=== PATIENT | male | born 1960 | race Caucasian/White ===

== ENCOUNTER 2016-10-31 07:29 | Observation (INO) | payer BC ==
[2016-10-31] VITALS (7 sets, daily range): BP systolic 125–142; BP diastolic 72–86; PULSE 54–74; RESP 12–20; TEMP 97.3–97.5; O2SAT 95–100
[~2016-10-31] VITALS: Ht 188 cm; Wt 125.0 kg
[2016-10-31] MEDS ORDERED: MORPHINE SULFATE 4 MG/ML INJ IV PUSH ONE (07:45)
[2016-10-31] MEDS ORDERED: SODIUM CHLORIDE 0.9% FLUSH 5 ML FLUSH IVF PRN ×3 (07:45→10:45)
[2016-10-31] MEDS ORDERED: ASPIRIN 81 MG CHEW TAB PO ONE (07:45)
--- NOTE | 2016-10-31 07:48 | PD ---
HPI Chief Complaint: Chest Pain Time Seen by Provider: 07:36 Travel History International Travel<30 days: No Contact w/Intl Traveler<30days: No Traveled to known affect area: No History of Present Illness HPI This is a 56-year-old male who presents to the emergency department with a history of a cardiac stent and a thoracic aortic aneurysm who presents to the emergency department with 4 days of discomfort in his left neck with one night of chest discomfort described as some heaviness, dull, constant, moderate severity having kept him up from sleeping overnight. The patient most recently had a stress test in February of last year which was reassuring. He did come off Plavix 3 weeks ago given that has been over a year since the stent was put in. He had imaging of his thoracic aneurysm in July of last year and they're monitoring it every 6 months. FOR[facility]LY [facility] Past Medical History Narrative Medical History of myocardial infarction with stent Known thoracic aortic aneurysm being monitored with CT imaging Social History Alcohol Use: Yes Tobacco Use: No Allergies-Medications (Allergen,Severity, Reaction): Coded Allergies: No Known Allergies (Unverified , 10/31/16) Reported Meds & Prescriptions Reported Meds & Active Scripts Active Reported Omeprazole 20 Mg Tab 20 Mg PO DAILY Coq-10 (Coenzyme Q10 (Ubidecarenone)) 150 Mg Cap 200 Mg PO DAILY [Fish Oil] 1,200 Mg PO NELSON Losartan (Losartan Potassium) 25 Mg Tab 25 Mg PO HS Lipitor (Atorvastatin Calcium) 80 Mg Tab 80 Mg PO HS Metoprolol Tartrate 50 Mg Tab 50 Mg PO DAILY Aspirin 81 Mg Tabdr 81 Mg PO DAILY Review of Systems Except as stated in HPI: all other systems reviewed are Neg Physical Exam Narrative GENERAL:Well appearing, no acute distress SKIN: Warm and dry. HEAD: Atraumatic. Normocephalic. EYES: Pupils equal and round. No injection or drainage. ENT: Moist mucous membranes NECK: Trachea midline. CARDIOVASCULAR: Regular rate and rhythm. No murmur appreciated. RESPIRATORY: Clear to auscultation. Breath sounds equal bilaterally. GASTROINTESTINAL: Abdomen soft, non-tender, nondistended. MUSCULOSKELETAL: No obvious deformities. NEUROLOGICAL: Awake and alert. No obvious cranial nerve deficits. Moving all extremities. PSYCHIATRIC: Appropriate mood and affect; insight and judgment normal. Data Data Last Documented VS Vital Signs Date Time Temp Pulse Resp B/P Pulse Ox O2 Delivery O2 Flow Rate FiO2 10/31/16 08:28 54 17 125/76 95 Room Air 10/31/16 07:30 97.5 Orders Electrocardiogram (10/31/16 07:43) Complete Blood Count With Diff (10/31/16 07:43) Comprehensive Metabolic Panel (10/31/16 07:43) Prothrombin Time / Inr (Pt) (10/31/16 07:43) Act Partial Throm Time (Ptt) (10/31/16 07:43) Troponin I (10/31/16 07:43) Chest, Single Ap (10/31/16 07:43) Ecg Monitoring (10/31/16 07:43) Bilateral Bp Monitoring (10/31/16 07:43) Iv Access Insert/Monitor (10/31/16 07:43) Oximetry (10/31/16 07:43) Oxygen Administration (10/31/16 07:43) Aspirin Chew (Aspirin Chew) (10/31/16 07:45) Sodium Chloride 0.9% Flush (Ns Flush) (10/31/16 07:45) Morphine Inj (Morphine Inj) (10/31/16 07:45) Cta Chest W Iv Contrast W 3d (10/31/16 08:37) Iohexol 350 Inj (Omnipaque 350 Inj) (10/31/16 09:03) Labs Laboratory Tests Test 10/31/16 07:50 White Blood Count 6.1 TH/MM3 Red Blood Count 4.92 MIL/MM3 Hemoglobin 15.1 GM/DL Hematocrit 44.5 % Mean Corpuscular Volume 90.3 FL Mean Corpuscular Hemoglobin 30.7 PG Mean Corpuscular Hemoglobin 33.9 % Concent Red Cell Distribution Width 13.3 % Platelet Count 165 TH/MM3 Mean Platelet Volume 6.7 FL Neutrophils (%) (Auto) 66.6 % Lymphocytes (%) (Auto) 21.0 % Monocytes (%) (Auto) 8.2 % Eosinophils (%) (Auto) 3.5 % Basophils (%) (Auto) 0.7 % Neutrophils # (Auto) 4.1 TH/MM3 Lymphocytes # (Auto) 1.3 TH/MM3 Monocytes # (Auto) 0.5 TH/MM3 Eosinophils # (Auto) 0.2 TH/MM3 Basophils # (Auto) 0.0 TH/MM3 CBC Comment DIFF FINAL Differential Comment Prothrombin Time 11.1 SEC Prothromb Time International 1.0 RATIO Ratio Activated Partial 27.1 SEC Thromboplast Time Sodium Level 141 MEQ/L Potassium Level 4.2 MEQ/L Chloride Level 105 MEQ/L Carbon Dioxide Level 31.4 MEQ/L Anion Gap 5 MEQ/L Blood Urea Nitrogen 15 MG/DL Creatinine 1.01 MG/DL Estimat Glomerular Filtration 76 ML/MIN Rate Random Glucose 97 MG/DL Calcium Level 8.5 MG/DL Total Bilirubin 0.7 MG/DL Aspartate Amino Transf 26 U/L (AST/SGOT) Alanine Aminotransferase 55 U/L (ALT/SGPT) Alkaline Phosphatase 69 U/L Troponin I LESS THAN 0.02 NG/ML Total Protein 7.2 GM/DL Albumin 3.8 GM/DL [facility] Medical Decision Making Medical Screen Exam Complete: Yes Emergency Medical Condition: Yes Interpretation(s) EKG: Sinus bradycardia with T-wave inversions in leads 3 and aVF No leukocytosis Electrolytes are reassuring Troponin is normal Chest x-ray: No acute process Differential Diagnosis Acute coronary syndrome, GERD, costochondritis, thoracic aortic aneurysm, aortic dissection Narrative Course This is a 56-year-old male who presents to the emergency department with atypical chest discomfort that radiates up the left neck. The patient has a history of coronary artery disease with a stent as well as a known thoracic aortic aneurysm. He was placed on a monitor and an IV was established. EKG demonstrated some nonspecific changes. Labs are reassuring with a normal troponin. CTA was obtained to evaluate for thoracic aorta which is reassuring and shows no reason for the patient's pain. Patient will be placed in the chest pain center for serial cardiac enzymes and cardiology evaluation. Diagnosis Primary Impression: Chest pain Qualified Code: R07.9 - Chest pain, unspecified type Admitting Information Admitting Physician Requests: Radha Natarajan MD Oct 31, 2016 07:48
[2016-10-31] MEDS ORDERED: METO50TA PO (07:49)
[2016-10-31] MEDS ORDERED: COQ-150C PO (07:49)
[2016-10-31] MEDS ORDERED: OMEP20TA PO (07:49)
[2016-10-31] MEDS ORDERED: ASPI1TAB69 PO (07:49)
[2016-10-31] MEDS ORDERED: LOSA25TA PO (07:49)
[2016-10-31] MEDS ORDERED: LIPI80TA PO (07:49)
[2016-10-31] MEDS ORDERED: FISHOIL PO (07:49)
[2016-10-31 08:14] LABS: AUTOMATED NEUTROPHIL # 4.1 TH/MM3 (1.8-7.7); BASOPHIL % 0.7 % (0.0-2.0); EOSINOPHIL # 0.2 TH/MM3 (0-0.4); EOSINOPHIL % 3.5 % (0.0-4.0); HEMATOCRIT 44.5 % (39.0-51.0); HEMO FLAGS DIFF FINAL; LYMPHOCYTE # 1.3 TH/MM3 (1.0-4.8); MEAN CELL VOLUME 90.3 FL (80.0-100.0); MEAN CORPUSCULAR HEMOGLOBIN 30.7 PG (27.0-34.0); MEAN CORPUSCULAR HGB CONC 33.9 % (32.0-36.0); MONO % 8.2 % (0.0-8.0); NEUT % 66.6 % (16.0-70.0); PLATELET COUNT 165 TH/MM3 (150-450); RED BLOOD COUNT 4.92 MIL/MM3 (4.50-5.90); RED CELL DISTRIBUTION WIDTH 13.3 % (11.6-17.2); WHITE BLOOD COUNT 6.1 TH/MM3 (4.0-11.0)
--- NOTE | 2016-10-31 08:19 | RADRPT ---
EXAM DATE/TIME: 10/31/2016 07:56 [facility] COMPARISON: No previous studies available for comparison. INDICATIONS : Left side chest pains with tightness and pressure.Prior cardiac stents. MEDICAL HISTORY : Myocardial infarction. SURGICAL HISTORY : Coronary artery stent. ENCOUNTER: Initial ACUITY: 1 day PAIN SCORE: 7/10 LOCATION: Left chest FINDINGS: 2 portable frontal views of the chest show no infiltrate or effusion. Heart is normal in size. No pne umothorax. Bony structures are unremarkable. CONCLUSION: Normal examination. Konstantin De León Jr., MD on October 31, 2016 at 8:17 Board Certified Radiologist. This report was verified electronically.
[2016-10-31 08:25] LABS: APTT (PATIENT) 27.1 SEC (24.3-30.1); PROTHROMBIN TIME - PATIENT 11.1 SEC (9.8-11.6)
[2016-10-31 08:29] LABS: ANION GAP 5 MEQ/L (5-15); AST (GOT) 26 U/L (15-37); BICARBONATE 31.4 MEQ/L (21.0-32.0); BLOOD UREA NITROGEN 15 MG/DL (7-18); CHLORIDE 105 MEQ/L (98-107); GLOMERULAR FILTRATION RATE 76 ML/MIN (>89); POTASSIUM 4.2 MEQ/L (3.5-5.1); SODIUM (NA) 141 MEQ/L (136-145)
[2016-10-31 08:34] LABS: ALKALINE PHOSPHATASE 69 U/L (45-117); ALT (GPT) 55 U/L (12-78); TOTAL BILIRUBIN ADULT 0.7 MG/DL (0.2-1.0)
[2016-10-31] MEDS ORDERED: IOHEXOL 350 MG/ML 10 ML VIAL (for RAD DIAG) IV ONE (09:03)
--- NOTE | 2016-10-31 09:43 | RADRPT ---
EXAM DATE/TIME: 10/31/2016 09:01 [facility] COMPARISON: No previous studies available for comparison. INDICATIONS: Chest pain with jaw pressure. IV CONTRAST: 95 cc Omnipaque 350 (iohexol) IV RADIATION DOSE: 23.54 CTDIvol (mGy) MEDICAL HISTORY: Hypertension. Hernia, inguinal. SURGICAL HISTORY: Tonsillectomy. Cardiac stent. ENCOUNTER: Initial ACUITY: 3 days PAIN SCALE: 5/10 LOCATION: Chest TECHNIQUE: Volumetric scanning of the chest was performed using a pulmonary embolism protocol MIP images were re constructed. Using automated exposure control and adjustment of the mA and/or kV according to patien t size, radiation dose was kept as low as reasonably achievable to obtain optimal diagnostic quality images. FINDINGS: There is mild aneurysmal dilatation of the ascending aorta measuring 4.3 cm. No dissection is seen. No pericardial effusion is seen. The patient does have high density material within the proximal LAD li kim related to a stent. The aortic arch and descending thoracic aorta are normal. The lungs are grossly clear. Visualized structures in the upper abdomen are unremarkable. CONCLUSION: 1. Mild aneurysmal dilatation of the ascending aorta measuring 4.3 cm. 2. Coronary artery stent in the LAD. 3. There is no evidence of dissection. Nick Marie MD on October 31, 2016 at 9:28 Board Certified Radiologist. This report was verified electronically.
[2016-10-31] MEDS ORDERED: SODIUM CHLORIDE 0.9% FLUSH 5 ML FLUSH IVF SCH ×2 (09:45→21:00)
[2016-10-31] MEDS ORDERED: ACETAMINOPHEN 500 MG CPLT PO PRN (10:45)
[2016-10-31] MEDS ORDERED: ALPRAZolam 0.25 MG TAB PO PRN (10:45)
[2016-10-31] MEDS ORDERED: ACETAMINOPHEN/HYDROcodone 325 MG/7.5 MG TAB PO PRN (10:45)
[2016-10-31] MEDS ORDERED: ONDANSETRON HCL 4 MG/2 ML VIAL IV PRN (10:45)
--- NOTE | 2016-10-31 10:59 | HHI.HP ---
HPI Primary Care Physician Non-Staff Chief Complaint Chest pain History of Present Illness This is a 56-year-old male that presents to ED via private vehicle with his with history of CAD. He is from [place]. October 08, 2015 he had a stent placed to his LAD while in [place] and to having a non-STEMI. He has been compliant with his medications and just finished taking his Plavix 3 weeks ago after being on it for about a year. Patient states that he developed a left -sided jaw pain that he describes as dull. Began 4 days ago and has been constant however the intensity increases and decreases. He saw nothing to bring on the discomfort nothing to worsen or improve the discomfort. Then last night around 2:30 the morning is awoken with a tightness in the center of his chest that has been constantly there but waxing and waning. He's found nothing to worsen it. He has had some shortness of breath but denies nausea or diaphoresis. He states that when he had his PA in 2016 that he had symptoms of jaw discomfort, tightness in his chest, and arm pain which he states he had with this episode is not as intense. During his PA also has some discomfort radiating into his arm but this episode the discomfort when a sparse to his axillary region. Denies recent illnesses. Denies fevers or chills. He did not try nitroglycerin at home. Patient states that he is also had some chronic right lower extremity edema. He states that when he elevates the extremity the edema goes away. This was evaluated in [place] over the summer with an ultrasound which was negative for DVT. Review of Systems General: Patient denies fevers, chills recent, and recent travel HEENT: Patient denies headache, sore throat, difficulty swallowing. Left-sided jaw pain. Cardiovascular: Has the chest discomfort as mentioned above. Denies sensation of heart beating rapidly or irregularly. No syncope. Denies diaphoresis. Respiratory: He was little short of breath. Denies inspirational chest discomfort. Denies coughing wheezing or hemoptysis. GI: Patient denies nausea, vomiting, diarrhea, abdominal pain, bloody stools. Musculoskeletal: Patient denies joint pain or edema. Denies calf pain or edema. Neurovascular: Patient denies numbness, tingling, weakness in extremities. Denies headache. Endocrine: Denies polyuria and polydipsia. Hematologic: Denies easy bruising. Skin: Denies rash or itching. Past Family Social History Allergies: Coded Allergies: No Known Allergies (Unverified , 10/31/16) Past Medical History History of CAD. He was a non-STEMI September 2015 while in [place]. He had a stent to the LAD. Was a 4 x 20 mm Promus premier stent. He was on Plavix for over a year. History of aortic aneurysm that is followed in [place]. He states that his last CT showed that the size of aneurysm has been decreasing and was 5.[address] scan last night in this hospital measured 4.3 cm. Also has history of hypertension, hyperlipidemia, and GERD. Denies diabetes. Past Surgical History Cardiac catheterization October 08, 2015 with stenting of the LAD. Tonsillectomy and right inguinal hernia repair. Reported Medications Reported Meds & Active Scripts Active Reported Omeprazole 20 Mg Tab 20 Mg PO DAILY Coq-10 (Coenzyme Q10 (Ubidecarenone)) 150 Mg Cap 200 Mg PO DAILY [Fish Oil] 1,200 Mg PO NELSON Losartan (Losartan Potassium) 25 Mg Tab 25 Mg PO HS Lipitor (Atorvastatin Calcium) 80 Mg Tab 80 Mg PO HS Metoprolol Tartrate 50 Mg Tab 50 Mg PO DAILY Aspirin 81 Mg Tabdr 81 Mg PO DAILY Active Ordered Medications Current Medications Medications (Trade) Dose Ordered Sig/Vignesh Route Start Time Stop Time Status Last Admin (NS Flush) 2 ml UNSCH PRN IVF 10/31/16 10:45 (NS Flush) 2 ml BID IVF 10/31/16 21:00 (Tylenol) 500 mg Q4H PRN PO 10/31/16 10:45 ([place] 7.5-325 Mg) 1 tab Q4H PRN PO 10/31/16 10:45 (Zofran Inj) 4 mg Q6H PRN IV 10/31/16 10:45 (Protonix) 40 mg DAILY PO 10/31/16 11:00 (Aspirin) 325 mg DAILY PO 11/01/16 09:00 (Xanax) 0.25 mg Q8H PRN PO 10/31/16 10:45 (Lipitor) 80 mg HS PO 10/31/16 21:00 (Cozaar) 25 mg HS PO 10/31/16 21:00 (Lopressor) 50 mg DAILY PO 11/01/16 09:00 Family History His father had an PA. Social History Patient is a lifetime nonsmoker. Denies illicit drugs. He may have 1-2 out of beverages a week. 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 He is . Physical Exam Vital Signs Vital Signs Date Time Temp Pulse Resp B/P Pulse Ox O2 Delivery O2 Flow Rate FiO2 10/31/16 10:11 61 13 126/76 100 Room Air 10/31/16 08:28 54 17 125/76 95 Room Air 10/31/16 07:39 65 12 139/80 97 10/31/16 07:30 97.5 60 20 142/72 99 Room Air Physical Exam GENERAL: This is a well-nourished, well-developed patient, in no apparent distress. Patient speaks in clear complete sentences. Patient is pleasant. HEENT: Head is atraumatic and normocephalic. Neck is supple without lymphadenopathy and trachea is midline. No JVD or carotid bruits. CARDIOVASCULAR: Regular rate and rhythm without murmurs, gallops, or rubs. RESPIRATORY: Clear to auscultation. Breath sounds equal bilaterally. No wheezes , rales, or rhonchi. Chest wall is nontender. No use of accessory muscles. GASTROINTESTINAL: Abdomen is nontender, nondistended. Abdomen soft. No obvious pulsatile mass or bruit. No CVA tenderness. Strong femoral pulses bilaterally. Normal bowel sounds in all quadrants. MUSCULOSKELETAL: Patient is moving upper and lower extremities freely. Bilateral lower extremity edema more so on the right than the left. Patient states that this has been chronic and evaluated with an ultrasound of the right leg that did not show a DVT. No calf tenderness and no Homans sign. Strong pulses in upper and lower extremities. NEUROLOGICAL: Patient is alert and oriented. Cranial nerves 2-12 are grossly intact. No focal deficits and speech is clear. SKIN: No rash and turgor is normal. Laboratory Laboratory Tests Test 10/31/16 07:50 White Blood Count 6.1 Red Blood Count 4.92 Hemoglobin 15.1 Hematocrit 44.5 Mean Corpuscular Volume 90.3 Mean Corpuscular Hemoglobin 30.7 Mean Corpuscular Hemoglobin 33.9 Concent Red Cell Distribution Width 13.3 Platelet Count 165 Mean Platelet Volume 6.7 Neutrophils (%) (Auto) 66.6 Lymphocytes (%) (Auto) 21.0 Monocytes (%) (Auto) 8.2 Eosinophils (%) (Auto) 3.5 Basophils (%) (Auto) 0.7 Neutrophils # (Auto) 4.1 Lymphocytes # (Auto) 1.3 Monocytes # (Auto) 0.5 Eosinophils # (Auto) 0.2 Basophils # (Auto) 0.0 CBC Comment DIFF FINAL Differential Comment Prothrombin Time 11.1 Prothromb Time International 1.0 Ratio Activated Partial 27.1 Thromboplast Time Sodium Level 141 Potassium Level 4.2 Chloride Level 105 Carbon Dioxide Level 31.4 Anion Gap 5 Blood Urea Nitrogen 15 Creatinine 1.01 Estimat Glomerular Filtration 76 Rate Random Glucose 97 Calcium Level 8.5 Total Bilirubin 0.7 Aspartate Amino Transf 26 (AST/SGOT) Alanine Aminotransferase 55 (ALT/SGPT) Alkaline Phosphatase 69 Troponin I LESS THAN 0.02 Total Protein 7.2 Albumin 3.8 Result Diagram: 10/31/16 0750 10/31/16 0750 Imaging Chest x-ray reveals nothing acute. CTA of the aorta has been read by the radiologist as #1 mild aneurysmal dilatation of the ascending aorta measuring 4.3 cm. #2 coronary artery stent in the LAD. #3 there is no evidence of dissection. Last 48 hours Impressions Chest X-Ray 10/31/16 0743 Signed Impressions: Service Date/Time: Monday, October 31, 2016 07:56 - CONCLUSION: Normal examination. Konstantin De León Jr., MD Course Initial EKG is sinus rhythm without significant ST segment depressions or elevations. There are nonspecific inferior T-wave changes. Assessment and Plan Assessment and Plan * Chest pain: Patient will continue to have serial cardiac enzymes and EKGs for ruling out purposes. Patient is concerned as he states that many of the symptoms are similar to when he needs a stent but do not seem to be as intense. Patient will be evaluated by Dr. Beltran of cardiology and the chest pain center and that time he will make a plan of further cardiac evaluation. * CAD: This is going to be evaluated this visit. We will keep him on his medications. * Hypertension: Continue current medication. * Hyperlipidemia: Continue current medication. * Aortic aneurysm: We will give the patient a copy of his CT as well as a copy of his images. He can share this information with his physician following his aneurysm in [place]. * GERD: Will use Protonix. Patient is stable at this time. He is agreeable to this plan. Jc Latif Oct 31, 2016 10:59
[2016-10-31] MEDS ORDERED: PANTOPRAZOLE SOD 40 MG DELAYED RELEASE TAB PO SCH (11:00)
[2016-10-31 11:48] LABS: CREATINE KINASE 87 U/L (39-308)
[2016-10-31] MEDS ORDERED: KETOROLAC TROMETHAMINE 30 MG/ML (IVP) VIAL IVP ONE (13:30)
[2016-10-31] MEDS ORDERED: REGADENOSON INJ 0.4 MG/5 ML SYR ONE (14:34)
--- NOTE | 2016-10-31 15:00 | EKG ---
Date Performed: 10/31/2016 Time Performed: 07:37:17 PTAGE: 56 years EKG: SINUS BRADYCARDIA BORDERLINE LEFT AXIS DEVIATION (QRS AXIS < -20) MODERATE INTRAVENTRICULAR CONDUCTION DELAY (110* ms QRS DURATION. BORDERLINE ECG NO PREVIOUS TRACING DOCTOR: Thea Roberts Interpretating Date/Time 10/31/2016 14:58:47
--- NOTE | 2016-10-31 15:08 | EKG ---
Date Performed: 10/31/2016 Time Performed: 07:44:20 PTAGE: 56 years EKG: SINUS BRADYCARDIA BORDERLINE LEFT AXIS DEVIATION[QRS AXIS <-20] MODERATE INTRAVENTRICULAR C ONDUCTION DELAY [110*ms QRS DURATION]. MINIMAL VOLTAGE CRITERIA FOR LVH, CONSIDER NORMAL VARIANT [ALEC TS CRITERIA IN ONE OF: R(aVL), S(), R(V5/V6)*S(V1)] PREVIOUS TRACING 10/31/2016@ 07.37.17 DOCTOR: Thea Roberts Interpretating Date/Time 10/31/2016 15:07:14
[2016-10-31 15:19] LABS: CREATINE KINASE 87 U/L (39-308)
--- NOTE | 2016-10-31 15:51 | RADRPT ---
EXAM DATE/TIME: 10/31/2016 14:08 [facility] COMPARISON: No previous studies available for comparison. INDICATIONS : Midsternal chest pain for 3 days. Angina. Coronary artery disease. DOSE: 35 mCi Tc99m Myoview at stress. 11 mCi Tc99m Myoview at rest. 0.4 mg Lexiscan STRESS SYMPTOMS: Flushed and dyspnea. EJECTION FRACTION: 59% MEDICAL HISTORY : Hypertension. Myocardial infarction. SURGICAL HISTORY : Inguinal hernia repair. Thoracic aortic aneurysm. ENCOUNTER: Initial ACUITY: 3 days PAIN SCALE: 3/10 LOCATION: Retrosternal chest TECHNIQUE: The patient underwent pharmacologic stress with infusion of prescribed dose. Continuous ECG tracing was monitored during stress. Gated SPECT imaging was performed after stress and conventional SPECT i maging was performed at rest. The examination was performed on a SPECT/CT scanner, both attenuation and non-corrected datasets were reviewed. FINDINGS: DISTRIBUTION: The maximum perfused segment at stress is in the anterior wall. PERFUSION STUDY: The pattern of perfusion at stress is within normal limits. GATED STUDY: There is intact wall motion and thickening without hypokinetic or dyskinetic segments. CONCLUSION: No areas of ischemia are seen. RISK CATEGORY: Low (<1% Annual Mortality Rate) Nick Marie MD on October 31, 2016 at 15:44 Board Certified Radiologist. This report was verified electronically.
--- NOTE | 2016-10-31 15:59 | HHI.DCPOC ---
Discharge Care Plan Diagnosis: (1) Chest pain (2) CAD (coronary artery disease) (3) H/O heart artery stent (4) Hypertension (5) Hyperlipidemia (6) Aortic aneurysm (7) GERD (gastroesophageal reflux disease) Goals to Promote Your Health * To prevent worsening of your condition and complications * To maintain your health at the optimal level Directions to Meet Your Goals Take your medications as prescribed Follow your dietary instruction Follow activity as directed Keep your appointments as scheduled Take your immunizations and boosters as scheduled If your symptoms worsen call your PCP, if no PCP go to Urgent Care Center or Emergency Room Smoking is Dangerous to Your Health. Avoid second hand smoke Call the 24-hour hour crisis hotline for domestic abuse at Jc Latif Oct 31, 2016 15:59
--- NOTE | 2016-10-31 17:58 | EKG ---
Date Performed: 10/31/2016 Time Performed: 14:01:59 PTAGE: 56 years EKG: SINUS BRADYCARDIA BORDERLINE LEFT AXIS DEVIATION MODERATE INTRAVENTRICULAR CONDUCTION DELAY BORDERLINE ECG Prior electrocardiogram not available for comparison PREVIOUS TRACING : 10/31/2016 07.44 DOCTOR: Emmanuel Mariano Interpretating Date/Time 10/31/2016 17:57:28
[2016-10-31] MEDS ORDERED: LOSARTAN 25 MG TAB PO SCH (21:00)
[2016-10-31] MEDS ORDERED: ATORVASTATIN 80 MG TAB PO SCH (21:00)
[2016-11-01] MEDS ORDERED: ASPIRIN 325 MG TAB PO SCH (09:00)
[2016-11-01] MEDS ORDERED: METOPROLOL TARTRATE 50 MG TAB PO SCH (09:00)
--- NOTE | 2016-11-01 14:04 | TR ---
Date Performed: 10/31/2016 Time Performed: 14:40:32 DOCTOR: Daniel Beltran DRUG LIST: CLINICAL HISTORY: CHEST PAIN REASON FOR TEST: CHEST PAIN REASON FOR ENDING: OBSERVATION: CONCLUSION: Lexiscan stress test was performed under standard four minute protocol. [place]ion[place] e was injected one minute prior to ending the test. No electrocardiographic abormalities were present to suggest ischemia. Nuclear imaging and interpretation are pending. COMMENTS:
== END 2016-10-31 18:05 | disposition home or self-care (01) ==
LOC: NEPC 07:29 → NEDA 09:32 → NEPGCP 12:02
DX: R07.9 Chest pain, unspecified (principal); I25.10 Atherosclerotic heart disease of native coronary artery without angina pectoris; I10 Essential (primary) hypertension; E78.5 Hyperlipidemia, unspecified; I71.9 Aortic aneurysm of unspecified site, without rupture; K21.9 Gastro-esophageal reflux disease without esophagitis; I25.2 Old myocardial infarction; Z79.82 Long term (current) use of aspirin; Z95.5 Presence of coronary angioplasty implant and graft
CPT/HCPCS: 71010; 71275; 78452; 80053; 82550; 84484; 85025; 85610; 85730; 93005; 93017; 96374; 99285; A9502; G0378; J1885; J2270; J2785; Q9967

== ENCOUNTER 2016-11-02 09:29 | Emergency (ER) | payer BC ==
[~2016-11-02] VITALS: Ht 188 cm; Wt 125.0 kg
[~2016-11-02 09:29] MED LIST: ASPI1TAB69 PO; COQ-150C PO; FISHOIL PO; LIPI80TA PO; LOSA25TA PO; METO50TA PO; OMEP20TA PO
[2016-11-02 09:33] VITALS: BP 161/85; PULSE 65; RESP 18; TEMP 98.3; O2SAT 98
--- NOTE | 2016-11-02 09:43 | PD ---
HPI . possible shingles Chief Complaint: Skin Problem Time Seen by Provider: 09:36 Travel History International Travel<30 days: No Contact w/Intl Traveler<30days: No Traveled to known affect area: No History of Present Illness HPI 56-year-old male visiting from [place] here with complaints of possible shingles. Patient noticed a painful rash that started in his chin yesterday. 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 Patient has started the acyclovir but did not take the Medrol Dosepak. Today he is complaining of pain and would like something for the associated pain. He denies any other rashes, lesions or pain sensation elsewhere. He was previously seen in the emergency department for chest pain and discharged home. 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) Abdominal Surgery: Yes (HERNIA ) Body Medical Devices: stent Cardiac Surgery: Yes (stent placement ) Coronary Stent: Yes Ear Surgery: No Endocrine Surgery: No Eye Surgery: No Genitourinary Surgery: No Gynecologic Surgery: No Oral Surgery: No Thoracic Surgery: No Tonsillectomy: Yes Social History Alcohol Use: Yes Tobacco Use: No Allergies-Medications (Allergen,Severity, Reaction): Coded Allergies: No Known Allergies (Unverified , 11/02/16) Reported Meds & Prescriptions Reported Meds & Active Scripts Active Ibuprofen 800 Mg Tab 800 Mg PO TID Reported Omeprazole 20 Mg Tab 20 Mg PO DAILY Coq-10 (Coenzyme Q10 (Ubidecarenone)) 150 Mg Cap 200 Mg PO DAILY Losartan (Losartan Potassium) 25 Mg Tab 25 Mg PO HS Lipitor (Atorvastatin Calcium) 80 Mg Tab 80 Mg PO HS Metoprolol Tartrate 50 Mg Tab 50 Mg PO DAILY Aspirin 81 Mg Tabdr 81 Mg PO DAILY Acyclovir 800 mg five times a day Medrol dose pack, take as directed Review of Systems General / Constitutional: No: Fever Eyes: No: Visual changes HENT: Positive: Other (facial pain), No: Headaches Cardiovascular: No: Chest Pain or Discomfort Respiratory: No: Shortness of Breath Gastrointestinal: No: Abdominal Pain Genitourinary: No: Dysuria Musculoskeletal: No: Pain Skin: Positive Other (blisters on left side of chin and left temporal region), No Rash Neurologic: No: Weakness Psychiatric: No: Depression Endocrine: No: Polydipsia Hematologic/Lymphatic: No: Easy Bruising Physical Exam Narrative GENERAL: AAO x 3, no acute distress, Well-nourished, well-developed patient. SKIN: Warm and dry. No visible bruising. There are herpetic-like lesions located in the left side of the chin as well as the left temporal region. consistent with shingles V3 distribution HEAD: Normocephalic and atraumatic. EYES: No scleral icterus. No injection or drainage. EOM intact, PERRLA. No evidence of ocular involvement and dermatome doesn't match. No lesions in Ear canal ENT: No nasal drainage noted. Mucous membranes pink. Airway patent. NECK: Supple, trachea midline. No JVD. CARDIOVASCULAR: Regular rate and rhythm without murmurs, gallops, or rubs. RESPIRATORY: Breath sounds equal bilaterally. No accessory muscle use. No rhonchi or rales. GASTROINTESTINAL: Abdomen soft, non-tender, nondistended. EXTREMITIES: No cyanosis or edema. BACK: Nontender without obvious deformity. No CVA tenderness. PSYCH: AAO x 3, normal affect. Data Data Last Documented VS Vital Signs Date Time Temp Pulse Resp B/P Pulse Ox O2 Delivery O2 Flow Rate FiO2 11/02/16 09:33 98.3 65 18 161/85 98 MDM Medical Decision Making Medical Screen Exam Complete: Yes Emergency Medical Condition: Yes Medical Record Reviewed: Yes Differential Diagnosis shingles, cellulitis, less likely rosacea Narrative Course 56-year-old male visiting from [place] here with complaints of possible shingles. Patient noticed a painful rash that started in his chin yesterday. 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 Patient has started the acyclovir but did not take the Medrol Dosepak. Today he is complaining of pain and would like something for the associated pain. He denies any other rashes, lesions or pain sensation elsewhere. He was previously seen in the emergency department for chest pain and discharged home. Patient seen and examined. He has shingles consistent with V3 distribution of the trigeminal nerve. There is no type of ocular involvement. Recommend to continue medications prescribed by provider in [place]. Provided some ibuprofen 800 mg for pain control. Recommend Benadryl [id number] cream or calamine lotion for any associated itching. Patient verbalized understanding of instructions, questions were answered, and thanked me for their care. I advised them if their condition worsens, please return to the nearest emergency room for further care. Diagnosis Primary Impression: Shingles outbreak Qualified Code: B02.9 - Herpes zoster without complication Patient Instructions: General Instructions, Shingles (ED) Additional Instructions: Please return to emergency department if your symptoms return or worsen. Follow up with your primary care provider. Take medications as prescribed. If you developed itching, you can use [id number] Benadryl cream. Med/Other Pt SpecificInfo: Prescription(s) given Scripts Ibuprofen 800 Mg Qcb453 Mg PO TID #30 TAB Prov:Margret Paiz MD 11/02/16 Disposition: 01 DISCHARGE HOME Condition: Stable Lakeshia Feldman Nov 02, 2016 09:43
[2016-11-02] MEDS ORDERED: IBUP800T23 PO (09:44)
== END 2016-11-02 09:50 | disposition home or self-care (01) ==
LOC: NEPB 09:29
DX: B02.9 Zoster without complications (principal)
CPT/HCPCS: 99283